=== PATIENT | male | born 1955 | race Caucasian/White ===

== ENCOUNTER → 2020-08-22 08:19 | Outpatient (BNVA) | payer OTHER, SELFPAY | PROVIDERS: PCP Nurse Practitioner; Referring Provider Nurse Practitioner; Visit Provider Anesthesiology Pain Medicine | DX: M20.41 Other hammer toe(s) (acquired), right foot (principal); M54.81 Occipital neuralgia; M54.12 Radiculopathy, cervical region; M50.90 Cervical disc disorder, unspecified, unspecified cervical region; M48.02 Spinal stenosis, cervical region; M47.812 Spondylosis without myelopathy or radiculopathy, cervical region; M54.9 Dorsalgia, unspecified | CPT/HCPCS: 64405; 73630; 99205; J1030; J3490 ==

== ENCOUNTER → 2020-09-22 10:08 | Outpatient (BNVA) | payer OTHER, SELFPAY | PROVIDERS: PCP Nurse Practitioner; Visit Provider Anesthesiology Pain Medicine | DX: M54.12 Radiculopathy, cervical region (principal); M50.90 Cervical disc disorder, unspecified, unspecified cervical region; M47.812 Spondylosis without myelopathy or radiculopathy, cervical region; M48.02 Spinal stenosis, cervical region; M25.512 Pain in left shoulder; M54.81 Occipital neuralgia; M54.9 Dorsalgia, unspecified | CPT/HCPCS: 99213 ==

== ENCOUNTER → 2021-03-29 09:45 | Outpatient (BNVA) | payer OTHER, SELFPAY | PROVIDERS: PCP Nurse Practitioner; Referring Provider Nurse Practitioner; Visit Provider Urology | DX: Z12.5 Encounter for screening for malignant neoplasm of prostate (principal); R97.20 Elevated prostate specific antigen [PSA]; N40.1 Benign prostatic hyperplasia with lower urinary tract symptoms; R33.9 Retention of urine, unspecified | CPT/HCPCS: 81003; G0103 ==

== ENCOUNTER 2021-05-05 11:27 | Outpatient (CLI) | payer OTHER, SELFPAY ==
[2021-05-05 11:40] VITALS: BP 105/68; PULSE 75; RESP 17; TEMP 36.9; O2SAT 95
[2021-05-05 13:05] VITALS: BP 110/70; PULSE 80; RESP 17; O2SAT 97
[2021-05-05 14:05] VITALS: BP 117/66; PULSE 80; RESP 17; TEMP 36.8; O2SAT 95
== END 2021-05-05 11:28 | disposition home or self-care (01) ==
PROVIDERS: PCP Nurse Practitioner; Visit Provider Nurse Practitioner
DX: U07.1 COVID-19 (principal)
CPT/HCPCS: 96365

== ENCOUNTER → 2021-09-28 16:13 | Outpatient (BNVA) | payer OTHER, SELFPAY | PROVIDERS: PCP Nurse Practitioner; Visit Provider Urology | DX: N40.1 Benign prostatic hyperplasia with lower urinary tract symptoms (principal); R97.20 Elevated prostate specific antigen [PSA]; R33.9 Retention of urine, unspecified | CPT/HCPCS: 81003; 84153 ==

== ENCOUNTER → 2022-08-07 15:10 | Outpatient (BNVA) | payer OTHER, SELFPAY | PROVIDERS: PCP Nurse Practitioner; Visit Provider Podiatrist Foot & Ankle Surgery | DX: G57.61 Lesion of plantar nerve, right lower limb (principal); M20.41 Other hammer toe(s) (acquired), right foot; M21.621 Bunionette of right foot | CPT/HCPCS: 64455; 73630; J1100; J3301; J3490 ==

== ENCOUNTER → 2022-09-17 10:36 | Outpatient (BNVA) | payer OTHER, SELFPAY | PROVIDERS: PCP Nurse Practitioner; Visit Provider Podiatrist Foot & Ankle Surgery | DX: M20.41 Other hammer toe(s) (acquired), right foot (principal); M21.621 Bunionette of right foot; G57.61 Lesion of plantar nerve, right lower limb | CPT/HCPCS: 64455 ==

== ENCOUNTER → 2022-10-15 10:17 | Outpatient (BNVA) | payer OTHER, SELFPAY | PROVIDERS: PCP Nurse Practitioner; Visit Provider Podiatrist Foot & Ankle Surgery | DX: G57.61 Lesion of plantar nerve, right lower limb (principal); M20.41 Other hammer toe(s) (acquired), right foot; M21.621 Bunionette of right foot | CPT/HCPCS: 64455 ==

== ENCOUNTER → 2022-11-15 09:57 | Outpatient (BNVA) | payer OTHER, SELFPAY | PROVIDERS: PCP Nurse Practitioner; Visit Provider Podiatrist Foot & Ankle Surgery | DX: M20.41 Other hammer toe(s) (acquired), right foot (principal) | CPT/HCPCS: 28011 ==

== ENCOUNTER → 2023-05-03 11:53 | Outpatient (BNVA) | payer OTHER, SELFPAY | PROVIDERS: PCP Nurse Practitioner; Visit Provider Nurse Practitioner Family | DX: L82.1 Other seborrheic keratosis (principal); D22.5 Melanocytic nevi of trunk; L57.0 Actinic keratosis; L81.4 Other melanin hyperpigmentation; L57.8 Other skin changes due to chronic exposure to nonionizing radiation | CPT/HCPCS: 17000; 17003; 99213 ==

== ENCOUNTER 2023-05-17 10:47 | Outpatient (CLI) | payer OTHER, SELFPAY ==
--- NOTE | 2023-05-17 | USCV_ITS ---
Slava Hughes Age: 67 Gender: M : 1955 Exam Date: 05/17/2023 11:02 Ordering Phys: Brandi Hayward Technologist: BRAX[place] [facility] [place]: Headaches Risk Factors: Previous Vascular Surgery: Right Brachial BP: / Left Brachial BP: / Right Left Velocity (cm/s) Spectral Plaque Velocity (cm/s) Spectral Plaque Syst/Diast Broadening Syst/Diast Broadening 106.10/25.00 Prox CCA 75.00 / 19.80 74.90/ 14.60 Mid CCA 73.00 / 24.00 57.90/ 16.10 Distal CCA 75.00 / 22.10 63.00/ 23.50 Prox ICA 50.50 / 20.20 61.60/ 30.10 Mid ICA 56.70 / 28.00 55.70/ 24.20 Distal ICA 46.60 / 21.00 78.40 ECA 72.20 0.59 ICA/CCA 0.76 Antegrade Vertebral Antegrade 63.00/ 19.80 cm/s 49.70/ 14.80 cm/s Tri Subclavian Tri 126.2 178.1 0 0 FINDINGS Comparison: none available. No significant elevation of systolic or diastolic velocities. Waveforms are normal. Minimal bilateral, atherosclerosis with no elevation of velocity. Antegrade vertebral arteries. CONCLUSIONS Bilateral ICA stenosis less than 50%. Mild carotid atherosclerosis. Dr. Alexandra Lopez DO (Electronically Signed) Final Date: 20 May 2023 07:44 S
== END 2023-05-17 10:48 | disposition home or self-care (01) ==
PROVIDERS: PCP Nurse Practitioner; Visit Provider Nurse Practitioner
DX: R51.9 Headache, unspecified (principal); I25.10 Atherosclerotic heart disease of native coronary artery without angina pectoris
CPT/HCPCS: 93880

== ENCOUNTER → 2023-08-16 15:48 | Outpatient (BNVA) | payer SELFPAY | PROVIDERS: PCP Nurse Practitioner; Visit Provider Nurse Practitioner Family | DX: S67.21XA Crushing injury of right hand, initial encounter (principal); W23.0XXA Caught, crushed, jammed, or pinched between moving objects, initial encounter | CPT/HCPCS: 73130 ==

== ENCOUNTER → 2024-01-02 09:48 | Outpatient (BNVA) | payer OTHER, SELFPAY | PROVIDERS: PCP Nurse Practitioner; Referring Provider Nurse Practitioner; Visit Provider Psychiatry & Neurology Neurology | DX: R51.9 Headache, unspecified | CPT/HCPCS: 99203 ==

== ENCOUNTER 2024-01-21 10:23 | Outpatient (CLI) | payer OTHER, SELFPAY ==
[2024-01-21] MEDS: gadobenate dimeglumine 20 mL vial IV (10:58)
--- NOTE | 2024-01-21 11:00 | MR_ITS ---
WS: [id number] MRI HEAD WITH CONTRAST TECHNIQUE: Sagittal T1, T2 axial, T2 axial FLAIR, axial susceptibility weighted imaging, axial diffus ion weighted images, and coronal T2 images were obtained. Pre and post-T1 axial and post T1 coronal i mages. ADC and FSPGR images. CLINICAL INFORMATION: R29.90 - Unspecified symptoms and signs involving the ner... COMPARISON: None. FINDINGS: No evidence of restricted diffusion to suggest acute ischemia. Ventricular system and basal cisterns are patent. Mild small vessel changes. Mild parenchymal volume loss. Small vessel changes in the cy . Normal posterior fossa. Normal vascular flow voids at the skull base. No extra-axial fluid collecti ons. No evidence of mass or mass effect. Paranasal sinuses and mastoid air cells are well aerated. No hemosiderin on the susceptibility weighted images. Normal optic chiasm and pituitary infundibulum. Temporal lobes and hippocampal formations are normal in appearance. Normal cavernous sinuses and Meckel's cave. No abnormal gadolinium enhancement. Normal dural venous sinuses. MR/MR head wo/w con [id number] IMPRESSION: 1. No evidence of restricted diffusion to suggest acute ischemia. 2. Mild small vessel changes with mild parenchymal volume loss. 3. Small vessel changes in the cy. 4. No abnormal gadolinium enhancement. 5. No hemosiderin on the susceptibility weighted images. 6. No other acute findings.
== END 2024-01-21 10:24 | disposition home or self-care (01) ==
LOC: RAD 10:24
PROVIDERS: PCP Nurse Practitioner; Visit Provider Psychiatry & Neurology Neurology
DX: R29.90 Unspecified symptoms and signs involving the nervous system (principal); G93.89 Other specified disorders of brain
CPT/HCPCS: 70553; A9577

== ENCOUNTER 2024-04-01 10:00 | Outpatient (CLI) | payer OTHER, SELFPAY ==
--- NOTE | 2024-04-01 10:00 | MR_ITS ---
WS: [id number] MR VENOGRAPHY HEAD 3-D noncontrast imaging performed through the cerebral veins. All imaging is reviewed. HISTORY: R51.9 - Headache, unspecified COMPARISON: None available. Good demonstration of the RIGHT dural venous sinuses and cerebral veins. There are no filling defects to suggest acute or chronic thrombus. Nonvisualization of the LEFT transverse sinus and jugular vein . This is probably developmental. On the MRI brain from 01/21/2024 nonvisualization of the transverse sinus and sigmoid sinus was also present then with no thrombus. This is a normal variant. Superior sa gittal sinus is normal. Dominant LEFT transverse sinus, sigmoid sinus and jugular vein. No filling de fects or thrombus. Straight sinus is normal. MR/[place] [id number] IMPRESSION: 1. No venous sinus thrombosis. 2. Nonvisualization of the LEFT transverse sinus/sigmoid sinus and jugular vei n is likely developmental. Nonvisualization and small caliber veins also noted on the prior MRI of 01/21/2024.
== END 2024-04-01 10:01 | disposition home or self-care (01) ==
PROVIDERS: PCP Nurse Practitioner; Visit Provider Psychiatry & Neurology Neurology
DX: R51.9 Headache, unspecified (principal); R29.90 Unspecified symptoms and signs involving the nervous system
CPT/HCPCS: 70544

== ENCOUNTER → 2024-05-05 08:50 | Outpatient (BNVA) | payer OTHER, SELFPAY | PROVIDERS: PCP Nurse Practitioner; Visit Provider Nurse Practitioner Family | DX: L57.0 Actinic keratosis (principal); L57.8 Other skin changes due to chronic exposure to nonionizing radiation; D22.5 Melanocytic nevi of trunk; L82.1 Other seborrheic keratosis; L81.4 Other melanin hyperpigmentation; L82.0 Inflamed seborrheic keratosis; L91.8 Other hypertrophic disorders of the skin | CPT/HCPCS: 11102; 17000; 17110; 99213 ==

== ENCOUNTER → 2024-05-21 11:37 | Outpatient (BNVA) | payer OTHER, SELFPAY | PROVIDERS: PCP Nurse Practitioner; Referring Provider Nurse Practitioner; Visit Provider Student in an Organized Health Care Education/Training Program | DX: Z12.11 Encounter for screening for malignant neoplasm of colon (principal) | CPT/HCPCS: 99204 ==

== ENCOUNTER 2024-07-07 08:59 | Day surgery (SDC) | payer OTHER, SELFPAY ==
[2024-07-07 09:23] VITALS: BP 118/81; PULSE 94; RESP 18; TEMP 36.6; O2SAT 97
[2024-07-07] MEDS: sodium chloride 0.9% 1,000 ML 30 ML IV (09:32)
--- NOTE | 2024-07-07 10:27 | P.ANESASSM_ITS ---
Pre-Anesthetic Assessment Height/Weight: Height 1.75 m Weight 79.379 kg Temp Pulse Resp BP Pulse Ox O2 Del Method 97.9 F 94 18 118/81 97 Room Air 07/07/24 09:23 07/07/24 09:23 07/07/24 09:23 07/07/24 09:23 07/07/24 09:23 07/07/24 09:23 Operation Date: 07/07/24 10:15 Proposed Procedures p Colonoscopy / 29394, G0105,Z12.11(Not Applicable) - Ramesh Jara MD Familial anesthetic complications: none Was Beta Mar taken within 24 hours: N/A Was Clonidine taken within 24 hours: N/A Last intake: Intake Last Liquid Date 07/06/24 Last Liquid Time 20:00 Last Solid Date 07/05/24 Last Solid Time 13:00 Social No alcohol and No tobacco Exam alert and oriented x 3 Airway Submandibular: within normal limits Cervical ROM: within normal limits Mallampati: Class IV (smll mouth opening) Dentition: full History/ROS No significant history except as noted Pulmonary None reported CV/HEM None reported None reported Hepatic None reported GI Gastroesophageal Reflux Disease Metabolic Hyperlipidemia [facility] [place] Lower Back Pain and Osteoarthritis/DJD Neuropsych Anxiety Anesthetic Plan ASA status: 2 Anesthesia: General and MAC Medications/Allergies Home Medications Medication Instructions Recorded Confirmed Last Taken Type sertraline 100 mg tablet 100 mg PO DAILY 08/22/20 07/07/24 07/06/24 History gabapentin 100 mg capsule 200 mg PO TID 08/16/23 07/07/24 07/05/24 History ascorbic acid (vitamin C) 1,000 mg 1 g PO Q6H 01/02/24 07/07/24 07/05/24 History capsule cholecalciferol (vitamin D3) 50 50 mcg PO DAILY 01/02/24 07/07/24 07/05/24 History mcg (2,000 unit) capsule multivitamin 1 tab PO DAILY 01/02/24 07/07/24 07/05/24 History cyclobenzaprine 10 mg tablet 10 mg PO TID PRN Back Pain 07/02/24 07/07/24 07/05/24 History Allergies Allergy/AdvReac Type Severity Reaction Status Date / Time No Known Allergies Allergy Verified 05/21/24 11:45 Current Medications Generic Name Dose Route Start Last Admin Trade Name Freq PRN Reason Stop Dose Admin Sodium Chloride 1,000 mls @ 30 mls/hr 07/07/24 09:15 07/07/24 09:32 Sodium Chloride 0.9% IV 30 mls/hr .Q24H CASSIDY Administration PFSH Anesthesia Medical History Crushing injury of right hand History of broken finger History of fracture of clavicle Elevated PSA Surgical History (Updated 05/21/24 @ 11:53 by Dory Marks MA) History of hernia repair Family History Father Heart disease Cancer Social History Smoking and tobacco/nicotine status: never used tobacco/nicotine Alcohol intake: never Substance/Drug Use: never Marital status: service: Yes branch: [employer] Current occupational status: retired and disabled Data Anesthesia Cardiac Studies: No Data to Display
--- NOTE | 2024-07-07 10:54 | P.HP_ITS ---
Same Day Surgery H&P Indication for Procedure/HPI DATE OF PROCEDURE: July 07, 2024 CHIEF COMPLAINT/INDICATIONFOR SURGICAL PROCEDURE: change in bowel habits PREOP DIAGNOSIS: IBS PLANNED PROCEDURE: Operation Date: 07/07/24 10:15 Proposed Procedures p Colonoscopy / [id number], G0105,Z12.11(Not Applicable) - Ramesh Jara MD Medications/Allergies* Home Medications Medication Instructions Recorded Confirmed Type sertraline 100 mg tablet 100 mg PO DAILY 08/22/20 07/07/24 History gabapentin 100 mg capsule 200 mg PO TID 08/16/23 07/07/24 History ascorbic acid (vitamin C) 1,000 mg 1 g PO Q6H 01/02/24 07/07/24 History capsule cholecalciferol (vitamin D3) 50 50 mcg PO DAILY 01/02/24 07/07/24 History mcg (2,000 unit) capsule multivitamin 1 tab PO DAILY 01/02/24 07/07/24 History cyclobenzaprine 10 mg tablet 10 mg PO TID PRN Back Pain 07/02/24 07/07/24 Histo ry Allergies/Adverse Reactions Allergy/AdvReac Type Severity Reaction Status Date / Time No Known Allergies Allergy Verified 05/21/24 11:45 Current Medications: Generic Name Dose Route Start Last Admin Trade Name Freq PRN Reason Stop Dose Admin Sodium Chloride 1,000 mls @ 30 mls/hr 07/07/24 09:15 07/07/24 09:32 Sodium Chloride 0.9% IV 30 mls/hr .Q24H CASSIDY Administration Pertinent History/Comorbid Conditions* Medical History (Updated 01/02/24 @ 11:32 by Gilberto Hazel MD) Crushing injury of right hand History of broken finger History of fracture of clavicle Elevated PSA Surgical History (Updated 05/01/22 @ 13:25 by Margaux Del Cid DO) History of hernia repair Family History (Updated 03/29/21 @ 09:42 by Toshia Hill LPN) Heart disease Father Cancer Father Social History Smoking and tobacco/nicotine status: never used tobacco/nicotine Alcohol intake: never Substance/Drug Use: never Marital status: service: Yes branch: [employer] Current occupational status: retired and disabled Pertinent Exam Findings alert, oriented x 3, clear to auscultation bilaterally, regular rate & rhythm and procedure specific exam findings Abdomen soft, nt, nd Recommendations Surgery/Procedure today Coding Level of Care Code Acute Code for Chg Fwd
[2024-07-07 11:15] VITALS: BP 105/71; PULSE 70; RESP 18; TEMP 36.1; O2SAT 89
[2024-07-07 11:30] VITALS: BP 107/79; PULSE 70; RESP 18; O2SAT 96
--- NOTE | 2024-07-07 12:21 | ANE.PACU2 ---
Inpatient post-anesthesia follow up: Airway intact: Yes Vital signs: Temperature 97 F Pulse Rate 70 Respiratory Rate 18 Blood Pressure 107/79 Pulse Oximetry 96 Oxygen Delivery Me thod Room Air Oxygen Flow Rate Fraction of Inspir ed Oxygen Hydration adequate: Yes Nausea and vomiting: No Pain level: 1 Mental status: Baseline
== END 2024-07-07 12:05 | disposition home or self-care (01) ==
PROVIDERS: PCP Nurse Practitioner; Visit Provider Student in an Organized Health Care Education/Training Program
PROC: 0DJD8ZZ Inspection of Lower Intestinal Tract, Via Natural or Artificial Opening Endoscopic (ICD-10-PCS; CPT 45378; principal; 2024-07-07 10:15)
DX: Z12.11 Encounter for screening for malignant neoplasm of colon (principal); K57.30 Diverticulosis of large intestine without perforation or abscess without bleeding; E78.5 Hyperlipidemia, unspecified; F41.9 Anxiety disorder, unspecified
CPT/HCPCS: 45378; J2704; J7030

== ENCOUNTER 2024-08-17 12:39 | Outpatient (CLI) | payer OTHER, SELFPAY ==
--- NOTE | 2024-08-17 12:46 | XRR_ITS ---
PROCEDURE INFORMATION: Exam: XR Lumbosacral Spine Exam date and time: 08/17/2024 12:55 PM Age: 69 years old Clinical indication: Low back pain; Patient HX: Injured back in service 1977, pain since then in neck and lower back; Additional info: Arthritis TECHNIQUE: Imaging protocol: Radiologic exam of the lumbosacral spine. Views: 2 or 3 views. COMPARISON: No relevant prior studies available. FINDINGS: Bones/joints: Normal. No acute fracture. Normal alignment. Soft tissues: Unremarkable. XR/XR lumbar spine 2-3V* [id number] IMPRESSION: No acute findings.
== END 2024-08-17 12:40 | disposition home or self-care (01) ==
PROVIDERS: PCP Nurse Practitioner; Visit Provider Dermatology
DX: M54.50 Low back pain, unspecified (principal); M13.80 Other specified arthritis, unspecified site
CPT/HCPCS: 72100

== ENCOUNTER 2025-03-30 10:41 | Outpatient (CLI) | payer OTHER, SELFPAY ==
[2025-03-30 11:43] LABS: Prostate Specific Antigen 4.860 ng/mL (0-4)
== END 2025-03-30 10:42 | disposition home or self-care (01) ==
PROVIDERS: PCP Nurse Practitioner; Visit Provider Urology
DX: R97.20 Elevated prostate specific antigen [PSA] (principal)
CPT/HCPCS: 36415; 84153

== ENCOUNTER → 2025-05-11 10:23 | Outpatient (BNVA) | payer MEDICARE, SELFPAY | PROVIDERS: PCP Nurse Practitioner; Visit Provider Nurse Practitioner Family | DX: L81.4 Other melanin hyperpigmentation (principal); L57.8 Other skin changes due to chronic exposure to nonionizing radiation; L82.1 Other seborrheic keratosis; D22.5 Melanocytic nevi of trunk; L91.8 Other hypertrophic disorders of the skin; L57.0 Actinic keratosis | CPT/HCPCS: 17000; 99213 ==